=== PATIENT | female | born 1975 | race Caucasian/White ===

== ENCOUNTER → 2019-02-12 | Outpatient (CLI) | payer SELFPAY ==
--- NOTE | 2019-02-12 12:10 | CT ---
EXAMINATION TYPE: CT heart w calcium score DATE OF EXAM: 02/12/2019 COMPARISON: None HISTORY: Screening for cardiovascular disorder. 213.9 CT DLP: 51.9 mGycm Automated exposure control for dose reduction was used. CT CALCIUM SCORING Coronary calcium is a marker for plaque (fatty deposits) in a blood vessel or atherosclerosis (harden ing of the arteries). The presence and amount of calcium detected in a coronary artery by the CT sca n, indicates the presence and amount of atherosclerotic plaque. These calcium deposits appear years before the development of heart disease symptoms such as chest pain and shortness of breath. A calcium score is computed for each of the coronary arteries based upon the volume and density of th e calcium deposits. This can be referred to as your calcified plaque burden. It does not correspond directly to the percentage of narrowing in the artery but does correlate with the severity of the un derlying coronary atherosclerosis. PROCEDURE TECHNIQUE - Prospective Gating was used. Slice thickness: 3mm. Density threshold (HU): 130, Pixel threshold: 3, Algorithm: discrete. RESULTS Region: LM Calcium Score (Agat[place]): 0 Volume (mm3): Mass (g): Region: RCA Calcium Score ([place]at[place]): 0 Volume (mm3): Mass (g): Region: LAD Calcium Score ([place]at[place]): 0 Volume (mm3): Mass (g): Region: CX Calcium Score ([place]at[place]): 0 Volume (mm3): Mass (g): Region: PDA Calcium Score ([place]at[place]): 0 Volume (mm3): Mass (g): Total: Calcium Score (Agatston): 0 Volume (mm3): Mass (g): TOTAL CALCIUM SCORE: 0 IMPRESSION: Calcium Score: 0 Implication: No identifiable calcified plaque Risk of Coronary Artery Disease: Very low CALCIUM SCORE IMPLICATION RISK OF C ORONARY ARTERY DISEASE 0 No identifiable plaque Very low, generally less than 5% 1-10 Minimal identifiable plaque Very unlikely, less than 10% 11-100 Definite, at least mild atherosclerotic plaque Mild or m inimal coronary narrowings likely 101-400 Definite, at least moderate atherosclerotic plaque Mild coronary ar giulia disease highly likely, significant narrowing possible 401 or Higher Extensive atherosclerotic plaque High lik elihood of at least one significant coronary narrowing
== END | disposition home or self-care (01) ==
LOC: RADCTMAIN 08:51
PROVIDERS: ATTEND Family Medicine
DX: Z13.9 Encounter for screening, unspecified (principal)
CPT/HCPCS: 75571

== ENCOUNTER 2019-10-17 13:19 | Observation (INO) | payer BC ==
[2019-10-17] MEDS ORDERED: ASPIRIN 81 MG PO STA (13:47)
[2019-10-17] MEDS ORDERED: NITROGLYCERIN SL TABS 0.4 MG TAB SUBLINGUAL STA (13:47)
--- NOTE | 2019-10-17 13:52 | ED ---
Chest Pain HPI - General Chief Complaint: Chest Pain Stated Complaint: High BP/Chest Pain Time Seen by Provider: 10/17/19 13:39 Source: patient, RN notes reviewed Mode of arrival: ambulatory Limitations: no limitations - History of Present Illness Initial Comments: 44-year-old female presents emergency Department chief complaint of chest pain. Patient states that she developed this chest pain or today. Patient does admit that she's been having difficulty with her blood pressure in which she states her blood pressure has been elevated recently started on hydrochlorothiazide. Patient states that she has pain on side of chest that wraps around into her back between her shoulder blades. Patient states she has no significant cardiac history she did have a baseline CT of her heart last year which showed no acute findings. Patient does have strong family history of cardiac disease could hypertension. Patient denies history of hyperlipidemia, diabetes, smoking history. Patient has no complaints of abdominal pain no nausea vomiting. - Related Data Previous Rx's Medication Instructions Recorded Ketorolac [Toradol] 10 mg PO Q6HR #20 tab 06/26/14 Ondansetron HCl [Zofran] 4 mg PO Q8HR #15 tab 06/26/14 Allergies Allergy/AdvReac Type Severity Reaction Status Date / Time prochlorperazine edisylate Allergy Unknown Verified 10/17/19 13:23 [From Compazine] prochlorperazine maleate Allergy Unknown Verified 10/17/19 13:23 [From Compazine] Review of Systems ROS Statement: Those systems with pertinent positive or pertinent negative responses have been documented in the HPI. ROS Other: All systems not noted in ROS Statement are negative. EKG Findings - EKG Comments: EKG Findings:: EKG performed at 13:32 normal sinus rhythm rate of 97 MI 132 QRS 96 QT/QTC 342/[address] elevation or depression normal axis. Inverted T-wave noted in V2 Past Medical History Past Medical History: Hypertension History of Any Multi-Drug Resistant Organisms: None Reported Past Surgical History: Section Past Psychological History: No Psychological Hx Reported Smoking Status: Never smoker Past Alcohol Use History: Occasional Past Drug Use History: None Reported General Exam Limitations: no limitations General appearance: alert, in no apparent distress Head exam: Present: atraumatic, normocephalic, normal inspection Eye exam: Present: normal appearance, PERRL, EOMI. Absent: scleral icterus, conjunctival injection, periorbital swelling ENT exam: Present: normal exam, normal oropharynx, mucous membranes moist Neck exam: Present: normal inspection, full ROM. Absent: tenderness, meningismus, lymphadenopathy Respiratory exam: Present: normal lung sounds bilaterally. Absent: respiratory distress, wheezes, rales, rhonchi, stridor Cardiovascular Exam: Present: regular rate, normal rhythm, normal heart sounds. Absent: systolic murmur, diastolic murmur, rubs, gallop, clicks GI/Abdominal exam: Present: soft, normal bowel sounds. Absent: distended, tenderness, guarding, rebound, rigid Back exam: Absent: CVA tenderness (R), CVA tenderness (L) Neurological exam: Present: alert Skin exam: Present: warm, dry, intact, normal color. Absent: rash Course Vital Signs 10/17/19 10/17/19 10/17/19 13:19 13:57 14:26 Temperature 98.0 F Pulse Rate 107 H 92 92 Respiratory 18 18 16 Rate Blood Pressure 181/112 169/100 150/74 O2 Sat by Pulse 100 Oximetry Chest Pain [facility] Patient is admitted to patient Mr. hospitalist group for unstable anginal cardiology evaluation. Patient CT does show evidence of kidney stone she has had some flank pain. This may be further assessed. Critical Care Time Critical Care Time: Yes Total Critical Care Time: 35 Critical Care Time: Total 35 minutes of critical care time were used initially evaluated patient currently past medical history in order labs and studies. Patient found to have unstable angina patients and improved after nitro. Patient was GIVEN aspirin. Patiently admitted for cardiology evaluation, started on heparin infusion. Patient will have repeat troponin, echocardiogram. Disposition Clinical Impression: Unstable angina, Right ureteral calculus Disposition: ADMITTED IP TO THIS HOSP Condition: Fair Referrals: Douglas Mena DO [Primary Care Provider] - 1-2 days
[2019-10-17 14:15] LABS: Basophils % (A) 0 %; Eosinophils # (A) 0.1 k/uL (0-0.7); Eosinophils % (A) 1 %; HCT 40.7 % (34.0-46.0); HGB 13.4 gm/dL (11.4-16.0); Lymphocytes % (A) 25 %; MCH 29.5 pg (25.0-35.0); MCV 89.6 fL (80.0-100.0); Mean Platelet Volume 7.5; Monocytes # (A) 0.4 k/uL (0-1.0); Monocytes % (A) 5 %; Neutrophils # (A) 5.2 k/uL (1.3-7.7); Neutrophils % (A) 65 %; Platelet Count 316 k/uL (150-450); RBC 4.55 m/uL (3.80-5.40); RDW 13.3 % (11.5-15.5)
[2019-10-17 14:17] LABS: Albumin 4.2 g/dL (3.5-5.0); Calcium 9.8 mg/dL (8.4-10.2); Potassium 3.6 mmol/L (3.5-5.1); Total Bilirubin 0.4 mg/dL (0.2-1.3); Total Protein 7.4 g/dL (6.3-8.2)
[2019-10-17 14:18] LABS: INR 0.9 (<1.2); Partial Thromboplastin Time 23.2 sec (22.0-30.0); Prothrombin Time 9.4 sec (9.0-12.0)
[2019-10-17] MEDS ORDERED: SODIUM CHLORIDE 0.9% 1,000 ML IV ONE (14:19)
--- NOTE | 2019-10-17 15:15 | CT ---
EXAMINATION TYPE: CT angio thor/abd pel aorta DATE OF EXAM: 10/17/2019 COMPARISON: Calcium score 02/12/2019 HISTORY: 44-year-old female Chest pain TECHNIQUE: Contiguous axial scanning of the chest, abdomen, and pelvis performed without and with IV Contrast, patient injected with 100 mL of Isovue 370. Coronal/sagittal reconstructions performed. 3-D reconstructions generated on a dedicated independent workstation. CT DLP: 1084.4 mGycm Automated exposure control for dose reduction was used. FINDINGS: Chest: Heart normal size without pericardial effusion. Aorta normal caliber with aberrant right subclavian artery that takes a retroesophageal course. No ev idence for aortic dissection or aneurysm. Noncontrast series shows no acute intraparenchymal hematoma . Heterogeneous 1.9 cm nodule posterior right thyroid lobe has some punctate calcifications within. Thy roid ultrasound evaluation recommended. Bilateral retropectoral breast implants are demonstrated. No thoracic lymphadenopathy by CT size criteria. Mild biapical pleural-parenchymal scarring. No consolidation or pleural effusion. ABDOMEN: Arterial phase imaging of the liver shows a 9 mm cyst. Limited assessment of the portal venous system due to mixing contrast and blood. No biliary ductal dilatation. Gallbladder within normal limits. Adrenal glands, left kidney, early arterial phase enhancing mottled spleen, and pancreas show no rebecca s abnormality. There is mild to moderate right-sided hydronephrosis with a 7 mm calculus distal third right ureter a t the level of the iliac vessel crossing. No dilated small bowel, free fluid, or free air. No mesenteric or retroperitoneal lymphadenopathy. Scattered mild to moderate stool. No pericolic inflammatory change. PELVIS: Bladder urine distended. Uterus anteverted with arcuate configuration. A crenulated peripherally enha ncing structure measuring 2.0 cm within the right ovary suggests a corpus luteum or recently ruptured follicle. Left ovary not clearly delineated from adjacent bowel loops. No abnormal fluid collection in the pelvis or pelvic lymphadenopathy seen. BONES: No osseous destructive process. IMPRESSION: 1. NO EVIDENCE FOR AORTIC ANEURYSM OR ACUTE AORTIC INJURY. 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 2. A 7 MM CALCULUS AT THE DISTAL THIRD RIGHT URETER AT THE LEVEL OF THE ILIAC VESSEL CROSSING WITH ME [id number] OBSTRUCTIVE UROPATHY. 3. FURTHER ULTRASOUND EVALUATION RECOMMENDED OF A 1.9 CM HETEROGENEOUS POSTERIOR RIGHT THYROID LOBE N ODULE. FNA MAY BE INDICATED TO EXCLUDE NEOPLASM.
[2019-10-17] MEDS ORDERED: HEPARIN SODIUM,PORCINE 5,000 UNIT/ML 1 ML VIAL IV ONE (15:31)
[2019-10-17] MEDS ORDERED: HEPARIN SODIUM,PORCINE 5,000 UNIT/ML 1 ML VIAL IV PRN (15:31)
[2019-10-17] MEDS ORDERED: NITROGLYCERIN SL TABS 0.4 MG TAB SUBLINGUAL PRN (15:31)
[2019-10-17] MEDS ORDERED: HEPARIN SOD,PORK IN 0.45% NACL 25,000 UNIT in 0.45% NACL 1 250ML.BAG IV SCH (15:45)
[2019-10-17] MEDS ORDERED: TEMAZEPAM 15 MG CAP PO PRN (16:57)
[2019-10-17] MEDS ORDERED: ALPRAZolam 0.25 MG TAB PO PRN (16:57)
[2019-10-17] MEDS ORDERED: ACETAMINOPHEN TAB 500 MG TAB PO PRN (16:57)
--- NOTE | 2019-10-17 17:24 | XR ---
EXAMINATION: XR chest 1V portable DATE AND TIME: 10/17/2019 5:16 PM CLINICAL INDICATION: PHH; chest pain TECHNIQUE: AP upright portable COMPARISON: None FINDINGS: The lungs are clear. The pleural spaces are negative. The cardiac silhouette is not enlarged. The remainder of the mediastinal silhouette is unremarkable. The skeletal structures and soft tissues are negative for acute findings. IMPRESSION: No acute process
[2019-10-17 17:47] LABS: Appearance,Urine Clear (Clear); Bacteria,Urine Rare /hpf; Bilirubin,Urine Negative (Negative); Blood,Urine Trace (Negative); Color,Urine Light Yellow; Glucose,Urine (UA) Negative (Negative); Ketones,Urine Negative (Negative); Leukocyte Esterase,Urine Trace (Negative); Mucus,Urine Rare /hpf; Nitrite,Urine Negative (Negative); Protein,Urine Negative (Negative); RBC,Urine 6 /hpf (0-5); Squamous Epithelial Cell,Urine 2 /hpf (0-4); Urobilinogen,Urine <2.0 mg/dL (<2.0); WBC,Urine 3 /hpf (0-5)
[2019-10-17 17:53] LABS: Amphetamine Screen,Urine Not Detected (NotDetected); Barbiturate Screen,Urine Not Detected (NotDetected); Benzodiazepines Screen,Urine Not Detected (NotDetected); Cocaine Screen,Urine Not Detected (NotDetected); Methadone Screen, Urine Not Detected (NotDetected); Opiate Screen,Urine Not Detected (NotDetected); Oxycodone Screen, Urine Not Detected (NotDetected); Phencyclidine Screen,Urine Not Detected (NotDetected); Tricyclic Antidepressant,Urine Not Detected (NotDetected); Urn Cannabinoid Scrn Not Detected (NotDetected)
--- NOTE | 2019-10-17 17:58 | ECHOF ---
Referral Reason:chest pain MEASUREMENTS -------- HEIGHT: 165.1 cm WEIGHT: 63.5 kg BP: 150/74 RVIDd: 2.2 cm (< 3.3) IVSd: 1.2 cm (0.6 - 1.1) LVIDd: 3.2 cm (3.9 - 5.3) LVPWd: 1.1 cm (0.6 - 1.1) IVSs: 1.4 cm LVIDs: 2.4 cm LVPWs: 1.4 cm LA Diam: 2.7 cm (2.7 - 3.8) LAESV Index (A-L): 19.67 ml/m Ao Diam: 3.1 cm (2.0 - 3.7) AV Cusp: 1.8 cm (1.5 - 2.6) MV EXCURSION: 16.139 mm (> 18.000) MV EF SLOPE: 70 mm/s (70 - 150) EPSS: 0.3 cm MV E Edmond: 0.80 m/s MV DecT: 278 ms MV A Edmond: 0.77 m/s MV E/A Ratio: 1.04 RAP: 5.00 mmHg RVSP: 17.13 mmHg TAPSE: 21.48 mm FINDINGS -------- Sinus rhythm. This was a technically good study. The left ventricular size is normal. There is borderline concentric left ventricular hypertrophy. Overall left ventricular systolic function is normal with, an EF between 60 - 65 %. The right ventricle is normal in size. Normal LA size by volume 22+/-6 ml/m2. The right atrium is normal in size. Interatrial and interventricular septum intact. The aortic valve is trileaflet and appears structurally normal. The mitral valve is normal. Mild tricuspid regurgitation present. Right ventricular systolic pressure is normal at < 35 mmHg. There is no pulmonic regurgitation present. The aortic root size is normal. Normal inferior vena cava with normal inspiratory collapse consistent with estimated right atrial pre ssure of 5 mmHg. There is no pericardial effusion. CONCLUSIONS -------- 1. Sinus rhythm. 2. This was a technically good study. 3. The left ventricular size is normal. 4. There is borderline concentric left ventricular hypertrophy. 5. Overall left ventricular systolic function is normal with, an EF between 60 - 65 %. 6. The right ventricle is normal in size. 7. Normal LA size by volume 22+/-6 ml/m2. 8. The right atrium is normal in size. 9. Interatrial and interventricular septum intact. 10. The aortic valve is trileaflet and appears structurally normal. 11. The mitral valve is normal. 12. Mild tricuspid regurgitation present. 13. Right ventricular systolic pressure is normal at < 35 mmHg. 14. There is no pulmonic regurgitation present. 15. The aortic root size is normal. 16. Normal inferior vena cava with normal inspiratory collapse consistent with estimated right atrial pressure of 5 mmHg. 17. There is no pericardial effusion. PAN RECLAIM PROCESSOR: Angela Chavez RDCS
[2019-10-17 18:11] VITALS: RESP 18
[2019-10-17] MEDS: SODIUM CHLORIDE 0.9% 1,000 ML IV SCH (18:36)
[2019-10-17] MEDS: PANTOPRAZOLE 40 MG/10 ML VIAL IVP SCH (18:36)
[2019-10-17] MEDS ORDERED: METOPROLOL TARTRATE 12.5 MG TAB PO SCH (21:00)
--- NOTE | 2019-10-17 22:04 | HP ---
HISTORY AND PHYSICAL DATE OF SERVICE: 10/17/2019 CHIEF COMPLAINT: Chest pain. HISTORY OF PRESENT ILLNESS: This is a 44-year-old woman with a past history of hypertension and history of section being followed by Dr. Mena in the outpatient setting who was complaining of chest pain, which is felt in the left side of the chest, which is rather pressure type and which is radiating to the front of the chest and also the upper back and also to the left side of the neck and patient . The patient has some fluctuation in the blood pressure as well. The patient was started on hydrochlorothiazide. The pain is wrapping around the chest and there was no radiation of the pain elsewhere or any other associated symptoms, palpitations or sweating. The patient . Initial EKG shows no ST-T changes. Troponins are negative. The patient had mild renal failure. The patient was admitted for further evaluation and treatment. There is no history of any fever, rigors, or chills. No history headache, loss of consciousness, or seizures. The patient reports the patient is going through a divorce which is causing some stress. There is no history of any trauma at this time. No history of trauma or any hematochezia, anemia, weight loss or weight gain at this time. PAST MEDICAL HISTORY: History of hypertension, history of section. HOME MEDICATIONS: 1. Zofran 4 mg q.8 p.r.n. 2. Toradol 10 mg q.6 p.r.n. 3. Hydrochlorothiazide. ALLERGIES: PROCHLORPERAZINE and COMPAZINE. FAMILY HISTORY: History of hypertension in the family. SOCIAL HISTORY: Occasional alcohol intake. No history of smoking. REVIEW OF SYSTEMS: ENT: No diminished vision. No diminished hearing. CARDIOVASCULAR: No angina or palpitations. RESPIRATORY: As mentioned earlier. GI: No nausea and vomiting. : No dysuria. NERVOUS SYSTEM: No numbness or weakness. ALLERGY/IMMUNOLOGY: No asthma or hayfever. MUSCULOSKELETAL: As mentioned earlier. HEMATOLOGY/ONCOLOGY: No history of anemia. ENDOCRINE: No history of diabetes or hypothyroidism. CONSTITUTIONAL: As mentioned earlier. DERMATOLOGY: Negative. RHEUMATOLOGY: Negative. PSYCHIATRY: As mentioned earlier. PHYSICAL EXAMINATION: The patient is alert and oriented x3. Pulse is 107, blood pressure 184/112, respirations 18, temperature is 98 degrees, pulse ox 100% on room air. HEENT: Conjunctivae normal. Oral mucosa moist. NECK: No jugular venous distention. No carotid bruit. No lymph node enlargement. CARDIOVASCULAR SYSTEM: S1, S2 muffled. No S3. No S4. RESPIRATORY SYSTEM: Breath sounds diminished at the bases. No rhonchi. No crackles. ABDOMEN: Soft, non-tender. No mass palpable. LEGS: No edema. NERVOUS SYSTEM: Higher functions as mentioned earlier. Moves all 4 limbs. No focal motor or sensory deficit. LYMPHATICS: No lymph node palpable in neck, axillae or groin. SKIN: No ulcer, rash, bleeding. JOINTS: No active deforming arthropathy. LABS: CBC within normal limits. INR 0.9. Sodium 130, potassium 3.6, creatinine is 1.13, BUN is 18. ASSESSMENT: 1. Chest pain, possible unstable angina. 2. Increased creatinine with mild acute renal failure, possibly prerenal acute tubular necrosis. 3. Hyponatremia. 4. Hypertension. 5. History of section. RECOMMENDATIONS AND DISCUSSION: This 44-year-old woman presented with multiple medical issues. At this time, I recommend to continue the current medications, management, and symptomatic treatment. IV heparin. I would also recommend IV fluids. UA with micro. Recommend a small dose of beta freeman. Cardiology consultation. Prognosis guarded because of multiple complex medical issues. A copy of this letter will be forwarded to Dr. Mena who is the primary physician. VAMSHI / SIRI: [id number] / [id number]
[2019-10-18] MEDS: SODIUM CHLORIDE 0.9% 1,000 ML IV SCH (04:15)
[2019-10-18 06:31] LABS: Basophils % (A) 0 %; Eosinophils # (A) 0.2 k/uL (0-0.7); Eosinophils % (A) 3 %; HCT 37.8 % (34.0-46.0); HGB 12.3 gm/dL (11.4-16.0); Lymphocytes # (A) 1.7 k/uL (1.0-4.8); Lymphocytes % (A) 26 %; MCH 29.7 pg (25.0-35.0); MCHC 32.5 g/dL (31.0-37.0); MCV 91.6 fL (80.0-100.0); Mean Platelet Volume 7.4; Monocytes # (A) 0.4 k/uL (0-1.0); Monocytes % (A) 6 %; Neutrophils % (A) 61 %; Platelet Count 266 k/uL (150-450); RBC 4.13 m/uL (3.80-5.40); RDW 13.3 % (11.5-15.5); WBC 6.5 k/uL (3.8-10.6)
[2019-10-18 06:51] LABS: Calcium 8.5 mg/dL (8.4-10.2); Potassium 3.8 mmol/L (3.5-5.1)
[2019-10-18 07:24] VITALS: BP 147/83; PULSE 77; TEMP 98.2
[2019-10-18] MEDS ORDERED: ASPIRIN 325 MG TAB PO SCH (09:00)
[2019-10-18] MEDS ORDERED: HYDROCHLOROTHIAZIDE 12.5 MG CAP PO SCH (09:00)
--- NOTE | 2019-10-18 09:55 | P.CRDCN ---
History of Present Illness History of present illness: HISTORY OF PRESENTING ILLNESS This is a pleasant 44-year-old female past medical history significant for hypertension. 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 We have been asked to see in consultation for chest pain. She states yesterday while sitting down conversing with her son she started feeling a tightness in the chest in the midsternal region that radiated across to both of her shoulders and through to her back. Initially the symptoms remained stable at that point but then they started radiating up into her throat and jaw. The symptoms lasted for about 15 minutes with no specific aggravating or alleviating factor. They slowly started to subside on their own once arriving at the hospital. She had no associated shortness of breath, dizziness, nausea, vomiting, diaphoresis or palpitations. She did undergo a cardiac CT last year which revealed a calcium score of 0 with no significant coronary plaques noted. She was recently diagnosed with hypertension and started on hydrochlorothiazide 12.5 mg daily per PCP on Monday of this week. Echocardiogram obtained reveals preserved LV systolic function with ejection fraction 60-65%. DIAGNOSTICS EKG reveals sinus mechanism with no acute ST or T wave abnormalities noted. Chest xray negative for an acute cardiopulmonary process. CT of the thoracic aorta reveals aorta normal caliber with no evidence of dissection or aneurysm. Incidental finding of a 1.9 cm nodule on the right lobe of thyroid as well as a 7 mm calculus at the distal third. There Laboratory reviewed, CBC unremarkable, cardiac enzymes negative 3, NT proBNP 41, TSH 1.6, LDL 73, creatinine 0.9. Current cardiac medications include hydrochlorothiazide 12.5 mg daily. REVIEW OF SYSTEMS At the time of my exam: CONSTITUTIONAL: Denies fever or chills. CARDIOVASCULAR: Denies chest pain, shortness of breath, orthopnea, PND or palpitations. RESPIRATORY: Denies cough. GASTROINTESTINAL: Denies abdominal pain, diarrhea, constipation, nausea or vomiting. MUSCULOSKELETAL: Denies myalgias. NEUROLOGIC: Denies numbness, tingling or weakness. ENDOCRINE: Denies fatigue, weight change, polydipsia or polyurina. GENITOURINARY: Denies burning, hematuria or urgency with micturation. HEMATOLOGIC: Denies history of anemia or bleeding. PHYSICAL EXAMINATION Blood pressure 147/83 heart rate 77 afebrile and maintaining oxygen saturation on room air. CONSTITUTIONAL: No apparent distress. HEENT: Head is normocephalic. Pupils are equal, round. Sclerae anicteric. Mucous membranes of the mouth are moist. No JVD. No carotid bruit. CHEST EXAMINATION: Lungs are clear to auscultation. No chest wall tenderness is noted on palpation or with deep breathing. HEART EXAMINATION: Regular rate and rhythm. S1, S2 heard. No murmurs, gallops or rub. ABDOMEN: Soft, nontender. Positive bowel sounds. EXTREMITIES: 2+ peripheral pulses, no lower extremity edema and no calf tenderness. NEUROLOGIC EXAMINATION: Patient is awake, alert and oriented x3. ASSESSMENT Chest pain, atypical. An acute coronary event has been ruled out. Hypertension PLAN An acute coronary event has been ruled out. Discontinue heparin infusion. Perform stress echocardiogram to assess her stress induced cardiac ischemia. Continue hydrochlorothiazide 12.5 mg daily. Advised her to keep a log of her daily blood pressures to bring to follow up appointment for further adjustment of antihypertensive therapy. Thank you kindly for this consultation. Nurse Practitioner note has been reviewed, I agree with a documented findings and plan of care. Patient was seen and examined. Past Medical History Past Medical History: Hypertension, Musculoskeletal Disorder, Renal Disease, Respiratory Disorder, Thyroid Disorder Additional Past Medical History / Comment(s): Sciatic nerve pinched, kidney stones, broncitis, post hyperthyroidism, vertigo History of Any Multi-Drug Resistant Organisms: None Reported Past Surgical History: Section, Tonsillectomy Additional Past Surgical History / Comment(s): breast implants Past Anesthesia/Blood Transfusion Reactions: No Reported Reaction, Motion Sickness Past Psychological History: No Psychological Hx Reported Smoking Status: Never smoker Past Alcohol Use History: Occasional Past Drug Use History: None Reported - Past Family History Father Family Medical History: Hypertension Additional Family Medical History / Comment(s): crohns Mother Family Medical History: Hypertension Sister(s) Family Medical History: Hypertension Additional Family Medical History / Comment(s): crohns Medications and Allergies Home Medications Medication Instructions Recorded Confirmed Type Hydrochlorothiazide [Hydrodiuril] 12.5 mg PO DAILY 10/17/19 10/17/19 History Allergies Allergy/AdvReac Type Severity Reaction Status Date / Time prochlorperazine edisylate Allergy Unknown Verified 10/17/19 13:23 [From Compazine] prochlorperazine maleate Allergy Unknown Verified 10/17/19 13:23 [From Compazine] Physical Exam Vitals: Vital Signs Temp Pulse Pulse Resp BP BP Pulse Ox 10/18/19 08:00 77 18 10/18/19 07:23 98.2 F 77 18 147/83 100 10/18/19 04:33 98.4 F 78 18 137/84 100 10/18/19 00:00 98.1 F 85 18 156/94 100 10/17/19 19:33 98.6 F 79 18 167/94 100 10/17/19 18:10 96 18 184/99 99 10/17/19 14:26 92 16 150/74 10/17/19 13:57 92 18 169/100 10/17/19 13:19 98.0 F 107 H 18 181/112 100 Intake and Output 10/17/19 10/18/19 10/18/19 22:59 06:59 14:59 Intake Total 427.197 Balance 427.197 Intake: Intake, IV Titration 427.197 Amount Heparin Sod,Pork in 0.45% 52.197 NaCl 25,000 unit In 0.45 % NaCl 1 250ml.bag @ 12 UNITS/KG/HR 7.62 mls/hr IV .Q24H [facility] Rx#: [id number] Sodium Chloride 0.9% 1, 375 000 ml @ 75 mls/hr IV . [id number] [facility] Rx#:[id number] Other: Voiding Method Toilet # Voids 1 Weight 63.503 kg Results 10/18/19 05:51 10/18/19 05:51 Cardiac Enzymes 10/17/19 10/17/19 10/17/19 Range/Units 13:50 13:50 19:34 AST 16 (14-36) U/L Troponin I <0.012 <0.012 (0.000-0.034) ng/mL 10/18/19 Range/Units 01:50 AST (14-36) U/L Troponin I <0.012 (0.000-0.034) ng/mL Coagulation 10/17/19 10/17/19 10/18/19 Range/Units 13:50 22:30 05:51 PT 9.4 (9.0-12.0) sec APTT 23.2 43.7 H 51.3 H (22.0-30.0) sec Lipids 10/18/19 Range/Units 05:51 Triglycerides 111 (<150) mg/dL Cholesterol 147 (<200) mg/dL HDL Cholesterol 52 (40-60) mg/dL CBC 10/17/19 10/18/19 Range/Units 13:50 05:51 WBC 8.0 6.5 (3.8-10.6) k/uL RBC 4.55 4.13 (3.80-5.40) m/uL Hgb 13.4 12.3 (11.4-16.0) gm/dL Hct 40.7 37.8 (34.0-46.0) % Plt Count 316 266 (150-450) k/uL Comprehensive Metabolic Panel 10/17/19 10/18/19 Range/Units 13:50 05:51 Sodium 135 L 136 L (137-145) mmol/L Potassium 3.6 3.8 (3.5-5.1) mmol/L Chloride 97 L 104 (98-107) mmol/L Carbon Dioxide 31 H 26 (22-30) mmol/L BUN 18 H 16 (7-17) mg/dL Creatinine 1.13 H 0.90 (0.52-1.04) mg/dL Glucose 81 90 (74-99) mg/dL Calcium 9.8 8.5 (8.4-10.2) mg/dL AST 16 (14-36) U/L ALT 10 (4-34) U/L Alkaline Phosphatase 63 (38-126) U/L Total Protein 7.4 (6.3-8.2) g/dL Albumin 4.2 (3.5-5.0) g/dL Current Medications Generic Name Dose Route Start Last Admin Trade Name Freq PRN Reason Stop Dose Admin Acetaminophen 500 mg 10/17/19 16:57 Tylenol Tab PO Q6HR PRN Fever and/ or Pain Alprazolam 0.25 mg 10/17/19 16:57 Xanax PO TID PRN Anxiety Aspirin 325 mg 10/18/19 09:00 Aspirin PO DAILY CHUCK Heparin Sodium (Porcine) 0 unit 10/17/19 15:31 Heparin IV Q6HR PRN Low PTT Protocol Hydrochlorothiazide 12.5 mg 10/18/19 09:00 10/18/19 09:21 Hydrodiuril PO 12.5 mg DAILY [facility]UCK Administration Sodium Chloride 1,000 mls @ 75 mls/hr 10/17/19 17:00 10/18/19 04:15 Saline 0.9% IV 75 mls/hr .[id number] CHUCK Administration Nitroglycerin 0.4 mg 10/17/19 15:31 Nitrostat SUBLINGUAL Q5M PRN Chest Pain Pantoprazole Sodium 40 mg 10/17/19 17:00 10/17/19 18:36 Protonix IVP 40 mg BID CHUCK Administration Temazepam 15 mg 10/17/19 16:57 Restoril PO HS PRN Insomnia Intake and Output 10/17/19 10/18/19 10/18/19 22:59 06:59 14:59 Intake Total 427.197 Balance 427.197 Intake: Intake, IV Titration 427.197 Amount Heparin Sod,Pork in 0.45% 52.197 NaCl 25,000 unit In 0.45 % NaCl 1 250ml.bag @ 12 UNITS/KG/HR 7.62 mls/hr IV .Q24H [facility] Rx#: [id number] Sodium Chloride 0.9% 1, 375 000 ml @ 75 mls/hr IV . [id number] [facility] Rx#:[id number] Other: Voiding Method Toilet # Voids 1 Weight 63.503 kg 10/18/19 05:51 10/18/19 05:51
[2019-10-18] MEDS: PANTOPRAZOLE 40 MG/10 ML VIAL IVP SCH (10:21)
--- NOTE | 2019-10-18 10:41 | ECHOS ---
STRESS ECHOCARDIOGRAM INDICATIONS: Chest pain. BASELINE HEART RATE: 81 BASELINE BLOOD PRESSURE: 154/84 MAXIMUM HEART RATE: 162 MAXIMUM BLOOD PRESSURE: 192/87 85% MPHR: 148 100% MPHR: 174 METS: 10.5 MAXIMUM STAGE REACHED: 3 TOTAL EXERCISE TIME: 9:00 CLINICAL INFORMATION: Baseline EKG shows sinus rhythm, normal axis, normal intervals. Patient exercised on Teddy protocol for a total of 9 minutes achieving 10 METS, 93% of predicted maximal heart rate without chest pain or diagnostic ST-segment depression. Baseline echo shows normal left ventricular size, wall motion systolic function. Postexercise there is normal hyperdynamic response of all segments of myocardium noted. CONCLUSION: 1. Good exercise tolerance. 2. Negative stress test by EKG criteria. 3. Negative stress echo. MMHUGOL / IJN: [id number] /
[2019-10-18] MEDS ORDERED: PANTOPRAZOLE 40 MG TABLET PO SCH (21:00)
--- NOTE | 2019-10-18 22:17 | DS ---
DISCHARGE SUMMARY DATE OF SERVICE: 10/18/2019 FINAL DIAGNOSES: 1. Chest pain, myocardial infarction ruled out. Negative stress echo, possibly musculoskeletal. 2. Increased creatinine with mild acute renal failure with possible prerenal acute tubular necrosis improved. 3. Hyponatremia. 4. Hypertension. 5. History of section. DISCHARGE DISPOSITION: The patient is being discharged in stable condition with guarded prognosis. HISTORY OF PRESENT ILLNESS: This 44-year-old woman with a past medical history of multiple medical problems was admitted with chest pain. Myocardial infarction ruled out. Cardiology performed stress echo which was normal. The patient also had some minimal renal failure which is improved with IV hydration. On exam, vitals are stable. Cardiovascular: S1, S2 muffled. Abdomen soft. Nervous system: No focal deficits. DISCHARGE ADVICE AND MEDICATIONS: 1. Diet cardiac. 2. Activity limited until followup. 3. Follow up with Dr. Mena in 2-3 days. 4. Follow up with Cardiology as recommended. DISCHARGE MEDICATIONS: Hydrochlorothiazide 12.5 mg daily. Followup blood pressure twice daily and as well as Dr. Mena. Once again the patient will be discharged in stable condition with guarded prognosis. MMODL / IJN: [id number] /
== END 2019-10-18 13:04 ==
LOC: EC 13:19 → 1SOBS 16:18
PROVIDERS: ADMIT Hospitalist; ATTEND Hospitalist
DX: R07.89 Other chest pain (principal); N17.9 Acute kidney failure, unspecified; I10 Essential (primary) hypertension; E87.1 Hypo-osmolality and hyponatremia; N20.1 Calculus of ureter; E04.1 Nontoxic single thyroid nodule; I07.1 Rheumatic tricuspid insufficiency; Z63.5 Disruption of family by separation and divorce; Z88.8 Allergy status to other drugs, medicaments and biological substances; Z79.899 Other long term (current) drug therapy; Z82.49 Family history of ischemic heart disease and other diseases of the circulatory system; Z83.79 Family history of other diseases of the digestive system; Z90.89 Acquired absence of other organs; Z98.82 Breast implant status
CPT/HCPCS: 93005 ×2; 96366 ×2; 96375; 96376 ×2; 96361; 96365; 99291; 36415; 93306; 93351; 83880; 80061; 80053; 80048; 84443; 83690; 83735; 84484 ×2; 85025 ×2; 85610; 85730 ×2; 81001; 80306; 71045; 71275; 74174; G0378 ×2; J1644 ×2; C9113 ×2; Q9967

== ENCOUNTER → 2019-10-28 | Outpatient (CLI) | payer BC | END | disposition home or self-care (01) | DX: E04.1 Nontoxic single thyroid nodule (principal) | CPT/HCPCS: 76536 ==

== ENCOUNTER 2019-11-23 08:45 | Emergency (ER) | payer BC ==
[2019-11-23 08:50] VITALS: RESP 18; TEMP 97.9
[2019-11-23] MEDS ORDERED: SODIUM CHLORIDE 0.9% 2,000 ML IV STA (08:55)
[2019-11-23] MEDS ORDERED: MORPHINE SULFATE 4 MG/ML SYRINGE IV STA (08:55)
[2019-11-23] MEDS ORDERED: ONDANSETRON 4 MG/2 ML VIAL IVP STA ×2 (08:55→10:04)
[2019-11-23] MEDS ORDERED: KETOROLAC 30 MG/ML 1 ML VIAL IVP STA (08:55)
--- NOTE | 2019-11-23 08:57 | ED ---
Abdominal Pain HPI - General Chief Complaint: Abdominal Pain Stated Complaint: VOMITING Time Seen by Provider: 11/23/19 08:48 Source: patient Mode of arrival: wheelchair Limitations: no limitations - History of Present Illness Initial Comments: This is a 44 show female presents emergency Department chief complaint of nausea vomiting, right flank pain. Patient has a history kidney stone states that she associated a 4 mm stone in the past. Patient states pain is been going on for a few days uncontrolled with oral Toradol and Vicodin at home. Patient states she started vomiting this morning. No fevers or chills she does admit that she has some mild dysuria no noted hematuria. Patient denies fever, chills. She states pain is in her right flank and rates her right lower abdomen. Consistent with her prior kidney stones. Patient denies chest pain, shortness breath, headache or dizziness. Patient states she has an ALLERGY to Compazine no other known drug ALLERGIES. Patient states that makes the pain feel better or worse. - Related Data Home Medications Medication Instructions Recorded Confirmed Hydrochlorothiazide [Hydrodiuril] 12.5 mg PO DAILY 10/17/19 10/17/19 Previous Rx's Medication Instructions Recorded Ondansetron Odt [Zofran Odt] 4 mg PO Q8HR PRN #14 tab 11/23/19 Allergies Allergy/AdvReac Type Severity Reaction Status Date / Time prochlorperazine edisylate Allergy Unknown Verified 11/23/19 08:49 [From Compazine] prochlorperazine maleate Allergy Unknown Verified 11/23/19 08:49 [From Compazine] Review of Systems ROS Statement: Those systems with pertinent positive or pertinent negative responses have been documented in the HPI. ROS Other: All systems not noted in ROS Statement are negative. Past Medical History Past Medical History: Hypertension, Musculoskeletal Disorder, Renal Disease, Respiratory Disorder, Thyroid Disorder Additional Past Medical History / Comment(s): Sciatic nerve pinched, kidney stones, broncitis, post hyperthyroidism, vertigo History of Any Multi-Drug Resistant Organisms: None Reported Past Surgical History: Section, Tonsillectomy Additional Past Surgical History / Comment(s): breast implants Past Anesthesia/Blood Transfusion Reactions: No Reported Reaction, Motion Sickness Past Psychological History: No Psychological Hx Reported Smoking Status: Never smoker Past Alcohol Use History: Occasional Past Drug Use History: None Reported - Past Family History Father Family Medical History: Hypertension Additional Family Medical History / Comment(s): crohns Mother Family Medical History: Hypertension Sister(s) Family Medical History: Hypertension Additional Family Medical History / Comment(s): crohns General Exam Limitations: no limitations General appearance: alert, in no apparent distress Head exam: Present: atraumatic, normocephalic, normal inspection Eye exam: Present: normal appearance, PERRL, EOMI. Absent: scleral icterus, conjunctival injection, periorbital swelling Neck exam: Present: normal inspection, full ROM. Absent: tenderness, meningismus, lymphadenopathy Respiratory exam: Present: normal lung sounds bilaterally. Absent: respiratory distress, wheezes, rales, rhonchi, stridor Cardiovascular Exam: Present: regular rate, normal rhythm, normal heart sounds. Absent: systolic murmur, diastolic murmur, rubs, gallop, clicks GI/Abdominal exam: Present: soft, normal bowel sounds. Absent: distended, tenderness, guarding, rebound, rigid Back exam: Present: CVA tenderness (R). Absent: CVA tenderness (L) Neurological exam: Present: alert, oriented X3, CN II-XII intact Skin exam: Present: warm, dry, intact, normal color. Absent: rash Course Vital Signs 11/23/19 08:48 Temperature 97.9 F Pulse Rate 97 Respiratory 18 Rate Blood Pressure 115/76 O2 Sat by Pulse 99 Oximetry - Reevaluation(s) Reevaluation #1: 11/23/19 10:04 Patient reevaluated and updated and results resting comfortably in bed with no complaints of abdominal pain or flank pain Medical Decision Making - Medical Decision Making 44-year-old female presented for nausea vomiting right flank pain. Patient had a known history kidney stones. Patient's urinalysis reveals evidence of hematuria and there is some few WBCs of this is likely related to RBC Contin. Patient and was cultured. Patient is afebrile. Patient seems improved she'll continue Toradol, [place] at home in addition she'll continue Flomax and provided Zofran. She has a neurologist to follow-up with. We did discuss strict return parameters. Patient agrees with this plan at this time. - Lab Data Result diagrams: 11/23/19 09:07 11/23/19 09:07 Lab Results 04/07/0311/23/19 11/23/19 Range/Units 09:00 09:07 09:07 WBC 10.7 H (3.8-10.6) k/uL RBC 4.21 (3.80-5.40) m/uL Hgb 12.9 (11.4-16.0) gm/dL Hct 37.3 (34.0-46.0) % MCV 88.5 (80.0-100.0) fL MCH 30.7 (25.0-35.0) pg MCHC 34.7 (31.0-37.0) g/dL RDW 13.2 (11.5-15.5) % Plt Count 281 (150-450) k/uL Neutrophils % 78 % Lymphocytes % 13 % Monocytes % 5 % Eosinophils % 1 % Basophils % 0 % Neutrophils # 8.3 H (1.3-7.7) k/uL Lymphocytes # 1.4 (1.0-4.8) k/uL Monocytes # 0.5 (0-1.0) k/uL Eosinophils # 0.1 (0-0.7) k/uL Basophils # 0.0 (0-0.2) k/uL Sodium 136 L (137-145) mmol/L Potassium 3.4 L (3.5-5.1) mmol/L Chloride 101 (98-107) mmol/L Carbon Dioxide 27 (22-30) mmol/L Anion Gap 8 mmol/L BUN 16 (7-17) mg/dL Creatinine 1.12 H (0.52-1.04) mg/dL Est GFR (CKD-EPI)AfAm 68 (>60 ml/min/1.73 sqM) Est GFR (CKD-EPI)NonAf 59 (>60 ml/min/1.73 sqM) Glucose 105 H (74-99) mg/dL Calcium 9.6 (8.4-10.2) mg/dL Total Bilirubin 1.0 (0.2-1.3) mg/dL AST 23 (14-36) U/L ALT 11 (4-34) U/L Alkaline Phosphatase 65 (38-126) U/L Total Protein 7.4 (6.3-8.2) g/dL Albumin 4.3 (3.5-5.0) g/dL Amylase 79 (30-110) U/L Lipase 34 (23-300) U/L Urine Color Yellow Urine Appearance Cloudy H (Clear) Urine pH 5.5 (5.0-8.0) Ur Specific [place] 1.020 (1.001-1.035) Urine Protein 1+ H (Negative) Urine Glucose (UA) Negative (Negative) Urine Ketones Negative (Negative) Urine Blood Moderate H (Negative) Urine Nitrite Negative (Negative) Urine Bilirubin Negative (Negative) Urine Urobilinogen <2.0 (<2.0) mg/dL Ur Leukocyte Esterase Small H (Negative) Urine RBC >182 H (0-5) /hpf Urine WBC 35 H (0-5) /hpf Ur Squamous Epith Cells 2 (0-4) /hpf Hyaline Casts 9 H (0-2) /lpf Urine Mucus Many H (None) /hpf Disposition Clinical Impression: Kidney stone Disposition: HOME SELF-CARE Condition: Stable Instructions (If sedation given, give patient instructions): Kidney Stones (ED) Additional Instructions: Please return to the Emergency Department if symptoms worsen or any other concerns. Prescriptions: Ondansetron Odt [Zofran Odt] 4 mg PO Q8HR PRN #14 tab PRN Reason: Nausea Is patient prescribed a controlled substance at d/c from ED?: No Referrals: Douglas Mena DO [Primary Care Provider] - 1-2 days Time of Disposition: 10:06
[2019-11-23 09:32] LABS: Basophils % (A) 0 %; Eosinophils # (A) 0.1 k/uL (0-0.7); Eosinophils % (A) 1 %; HCT 37.3 % (34.0-46.0); HGB 12.9 gm/dL (11.4-16.0); Lymphocytes # (A) 1.4 k/uL (1.0-4.8); Lymphocytes % (A) 13 %; MCH 30.7 pg (25.0-35.0); MCHC 34.7 g/dL (31.0-37.0); MCV 88.5 fL (80.0-100.0); Mean Platelet Volume 8.1; Monocytes # (A) 0.5 k/uL (0-1.0); Monocytes % (A) 5 %; Neutrophils # (A) 8.3 k/uL (1.3-7.7); Neutrophils % (A) 78 %; Platelet Count 281 k/uL (150-450); RBC 4.21 m/uL (3.80-5.40); RDW 13.2 % (11.5-15.5); WBC 10.7 k/uL (3.8-10.6)
[2019-11-23 09:43] LABS: Appearance,Urine Cloudy (Clear); Bilirubin,Urine Negative (Negative); Blood,Urine Moderate (Negative); Color,Urine Yellow; Glucose,Urine (UA) Negative (Negative); Hyaline Casts,Urine 9 /lpf (0-2); Ketones,Urine Negative (Negative); Leukocyte Esterase,Urine Small (Negative); Mucus,Urine Many /hpf; Nitrite,Urine Negative (Negative); PH, Urine 5.5 (5.0-8.0); Protein,Urine 1+ (Negative); RBC,Urine >182 /hpf (0-5); Squamous Epithelial Cell,Urine 2 /hpf (0-4); Urobilinogen,Urine <2.0 mg/dL (<2.0); WBC,Urine 35 /hpf (0-5)
[2019-11-23 09:47] LABS: Albumin 4.3 g/dL (3.5-5.0); Calcium 9.6 mg/dL (8.4-10.2); Potassium 3.4 mmol/L (3.5-5.1); Total Protein 7.4 g/dL (6.3-8.2)
--- NOTE | 2019-11-23 09:50 | XR ---
EXAMINATION TYPE: XR KUB , 2 VIEWS DATE OF EXAM ORDERED: 11/23/2019 HISTORY: abdominal pain. COMPARISON: Previous study dated 06/26/2014. FINDINGS: The lung bases are clear. Within the abdomen, the abdominal gas pattern is normal. There is no evidence of obstruction or free air. No unusual calcifications are seen. IMPRESSION: NO ACUTE INTRA-ABDOMINAL ABNORMALITY.
[2019-11-23 10:30] VITALS: BP 117/77; PULSE 72
== END 2019-11-23 10:47 | disposition home or self-care (01) ==
LOC: EC 08:45
DX: N20.0 Calculus of kidney (principal); I10 Essential (primary) hypertension; Z79.899 Other long term (current) drug therapy; Z88.8 Allergy status to other drugs, medicaments and biological substances
CPT/HCPCS: 99284; 96374; 96375 ×2; 96376; 96361 ×2; 36415; 80053; 82150; 83690; 85025; 81001; 87086; 74018; J2270; J2405; J1885

== ENCOUNTER 2020-01-30 11:59 | Day surgery (SDC) | payer BC ==
[2020-01-30 12:46] VITALS: TEMP 98.2
--- NOTE | 2020-01-30 14:08 | US ---
EXAMINATION TYPE: US FNA thyroid first lesion DATE OF EXAM: 01/30/2020 COMPARISON: NONE HISTORY: Thyroid nodule.Maximal barrier technique was utilized. After informed consent, skin overlyi ng the right thyroid nodule was localized with ultrasound and the overlying skin prepped and draped. Ultrasound was utilized using sterile technique. Lidocaine was used for local anesthesia. Five passe s with a 25-gauge needle were made into the nodule and aspirated specimen was submitted to cytology. Following the procedure hemostasis achieved. No immediate complication. The patient discharged in stable condition. IMPRESSION: STATUS POST ULTRASOUND GUIDED FINE NEEDLE ASPIRATION OF THYROID NODULE, PATHOLOGY IS PEND ING. THIS PROCEDURE WAS PERFORMED BY THE UNDERSIGNED.
[2020-01-30 14:18] VITALS: BP 128/73; PULSE 88; RESP 16
== END 2020-01-30 14:07 | disposition home or self-care (01) ==
LOC: RADPROMAIN 11:59
PROVIDERS: ATTEND Family Medicine
DX: E04.1 Nontoxic single thyroid nodule (principal)
CPT/HCPCS: 10005; 88173; 88305

== ENCOUNTER → 2020-11-20 | Outpatient (CLI) | payer BC ==
--- NOTE | 2020-11-24 10:57 | MM ---
Reason for exam: screening (asymptomatic). Last mammogram was performed 6 years and 3 months ago. History: Retro-pectoral implants in both breasts. Physical Findings: A clinical breast exam by your physician is recommended on an annual basis and results should be correlated with mammographic findings. MG 3D Screen Mammo Imp/Cad Bilateral CC and MLO view(s) were taken. Prior study comparison: August 25, 2014, mammogram. The breast tissue is heterogeneously dense. This may lower the sensitivity of mammography. Retropectoral silicone implant. Lateral left CC asymmetric density in unchanged. Medial right CC asymmetric density appears new. ASSESSMENT: Incomplete: need additional imaging evaluation, BI-RAD 0 RECOMMENDATION: Special view mammogram of the right breast. (3D) If lesion persists on supplemental views, image directed ultrasound is recommended. [facility] will attempt to contact patient to return for supplemental views and ultrasound if indicated.
== END | disposition home or self-care (01) ==
LOC: RADMAMWWP 14:55
PROVIDERS: ATTEND Family Medicine
DX: Z12.31 Encounter for screening mammogram for malignant neoplasm of breast (principal)
CPT/HCPCS: 77063; 77067

== ENCOUNTER → 2020-12-01 | Outpatient (CLI) | payer BC ==
--- NOTE | 2020-12-01 13:45 | MM ---
Reason for exam: additional evaluation requested from abnormal screening. Last mammogram was performed less than 1 month ago. History: Retro-pectoral implants in both breasts. Physical Findings: Nurse did not find any significant physical abnormalities on exam. MG 3D Work Up W/Cad W/Imp RT CC with magnification and LM view(s) were taken of the right breast. Prior study comparison: November 20, 2020, bilateral MG 3d screen mammo imp/cad. August 25, 2014, mammogram. The breast tissue is heterogeneously dense. This may lower the sensitivity of mammography. Displaced views of the breast. Palpable marker laterally. Medial asymmetric density may partially disperse on the tight spot CC view. These results were verbally communicated with the patient and result sheet given to the patient on 12/01/20. ASSESSMENT: Incomplete: need additional imaging evaluation, BI-RAD 0 RECOMMENDATION: Ultrasound of the right breast.
--- NOTE | 2020-12-01 13:49 | USB ---
Reason for exam: additional evaluation requested from abnormal screening. History: Retro-pectoral implants in both breasts. US Breast Workup Limited RT Right limited breast ultrasound including focal area of concern, retroareolar and axilla demonstrates a 0.5 x 0.5 x 0.4cm oval possible small cyst cluster at 12 o'clock, a 0.7 x 0.5 x 0.3cm oval possible small cyst cluster at 12 o'clock, a 0.3 x 0.4 x 0.2cm oval suspected cyst cluster at 1 o'clock, a 0.3 x 0.3 x 0.2cm oval, lobular, hyperechoic lesion at 2 o'clock probable small lipoma, a 0.5 x 0.6 x 0.4cm oval, cystic lesion with some debris at 10 o'clock, benign and a 1.2 x 0.9 x 0.7cm benign lymph node at the axilla. No abnormality at the 9 o'clock patient palpable. Right breast scanned 12-6 o'clock and 9-10 o'clock. These results were verbally communicated with the patient and result sheet given to the patient on 12/01/20. ASSESSMENT: Probably benign, BI-RAD 3 RECOMMENDATION: Follow-up diagnostic mammogram of the right breast in 6 months. Manage on a clinical basis with regard to any suspicious palpable area.
== END | disposition home or self-care (01) ==
LOC: RADMAMWWP 10:23
PROVIDERS: ATTEND Family Medicine
DX: R92.8 Other abnormal and inconclusive findings on diagnostic imaging of breast (principal)
CPT/HCPCS: 77061; 77065

== ENCOUNTER → 2022-02-09 | Outpatient (CLI) | payer BC ==
--- NOTE | 2022-02-16 08:40 | MM ---
Reason for Exam: Additional evaluation requested from prior study. Last mammogram was performed 1 year(s) and 2 month(s) ago. Patient History: Menarche at age 9. First Full-Term at age 23. Bilateral Implants. Risk Values: Rosangela 5 year model risk: 1.1%. NCI Lifetime model risk: 11.1%. Prior Study Comparison: 11/20/2020 Bilateral Screening Mammogram, [facility]. 12/01/2020 Right Diagnostic Mammogram, [facility]. 12/01/2020 Right Diagnostic Ultrasound, [facility]. Tissue Density: There are scattered fibroglandular densities. Findings: No significant changes when compared with prior studies. Bilateral breast prothesis. Overall Assessment: Benign, BI-RAD 2 Management: Screening Mammogram of both breasts in 1 year. Results were given to the patient verbally at the time of exam. Electronically signed and approved by: Thomas Bailey D.O. Radiologis
== END | disposition home or self-care (01) ==
LOC: RADMAMWWP 13:59
PROVIDERS: ATTEND Family Medicine
DX: R92.8 Other abnormal and inconclusive findings on diagnostic imaging of breast (principal); R92.2 Inconclusive mammogram
CPT/HCPCS: 77062; 77066

== ENCOUNTER → 2022-02-21 | Outpatient (CLI) | payer BC ==
--- NOTE | 2022-02-21 10:26 | US ---
EXAMINATION TYPE: US pelvic complete DATE OF EXAM: 02/21/2022 COMPARISON: CT abdomen and pelvis June 26, 2014. Transvaginal pelvic ultrasound same date. CLINICAL HISTORY: N92.1 EXCESS AND FREQUENT MENSTRUATION. Frequent menstruation. . . TECHNIQUE: . Transabdominal sonographic images of the pelvis were acquired Date of LMP: 02/09/22 EXAM MEASUREMENTS: Uterus: 9.3 x 7.2 x 4.9 cm Endometrial Stripe: 1.0 cm Right Ovary: 2.8 x 2.0 x 1.7 cm Left Ovary: 3.3 x 2.7 x 2.3 cm 1. Uterus: Anteverted Multiple fibroids seen. Largest is in fundus measuring 2.5 x 1.5 x 1.5 cm 2. Endometrium: wnl 3. Right Ovary: wnl 4. Left Ovary: Cystic area measuring 1.2 x 1.2 x 1.2, likely a dominant follicle. 5. Bilateral Adnexa: wnl 6. Posterior cul-de-sac: wnl Heterogeneous prominent anteverted uterus with endometrial stripe measuring 10 mm within normal limit s for secretory phase of menstrual cycle. There are poorly defined heterogeneous myometrial masses or small fibroids. No free fluid. Both ovaries identified. Left ovary has incidental 1.2 cm prominent follicle or simple small ovarian cyst. No adnexal masses. IMPRESSION: Prominent bulky uterus, suspected small scattered fibroids. They can be better evaluated and characterized with pelvic MRI if desired.
== END | disposition home or self-care (01) ==
LOC: RADUSWWP 09:23
PROVIDERS: ATTEND Family Medicine
DX: N92.1 Excessive and frequent menstruation with irregular cycle (principal)
CPT/HCPCS: 76856

== ENCOUNTER 2022-03-15 08:32 | Day surgery (SDC) | payer BC ==
[2022-03-10 15:45] VITALS: BMI 22.4
[~2022-03-15 08:32] MED LIST: LACTATED RINGERS 1,000 ML IV SCH; LIDOCAINE 1% (10MG/ML) FOR IV START INTRADERMA PRN
[2022-03-15 09:29] VITALS: TEMP 97.8
[2022-03-15] MEDS ORDERED: LACTATED RINGERS 1,000 ML IV ONE (09:29)
[2022-03-15] MEDS ORDERED: PROPOFOL 10 MG/ML 20 ML VIAL IV ONE (09:57)
--- NOTE | 2022-03-15 10:34 | P.PCN ---
Date of Procedure: 03/15/22 Procedure(s) Performed: BRIEF HISTORY: Patient is a 46-year-old pleasant white female scheduled for an elective colonoscopy as a part of screening for colon cancer. PROCEDURE PERFORMED: Colonoscopy. PREOPERATIVE DIAGNOSIS: Screening for colon cancer. IV sedation per Anesthesia. PROCEDURE: After informed consent was obtained, the patient, was brought into the endoscopy unit. IV sedation was administered by Anesthesia under continuous monitoring. Digital rectal examination was normal. Initially the Olympus CF-160 flexible video colonoscope was then inserted in the rectum, gradually advanced into the cecum without any difficulty. Careful examination was performed as the scope was gradually being withdrawn. Ileocecal valve and the appendiceal orifice were visualized and appeared normal. Prep was excellent. Mucosa of the cecum, ascending colon, transverse colon, descending colon, sigmoid colon, and rectum appeared normal. Retroflexion was performed in the rectum and no lesions were seen. The patient tolerated the procedure well. IMPRESSION: Normal-appearing colon from rectum to cecumwith no evidence of colorectal neoplasia . RECOMMENDATIONS: Findings of this examination were discussed with the patient as well as her family. She was advised to have a repeat screening colonoscopy in 10 years..
[2022-03-15 10:44] VITALS: BP 136/87; PULSE 74; RESP 16
== END 2022-03-15 11:25 | disposition home or self-care (01) ==
LOC: ORWHC2ENDO 08:32
PROVIDERS: ATTEND Internal Medicine Gastroenterology
DX: Z12.11 Encounter for screening for malignant neoplasm of colon (principal); I10 Essential (primary) hypertension; Z88.8 Allergy status to other drugs, medicaments and biological substances; Z79.899 Other long term (current) drug therapy; Z82.49 Family history of ischemic heart disease and other diseases of the circulatory system; Z83.79 Family history of other diseases of the digestive system; Z80.0 Family history of malignant neoplasm of digestive organs
CPT/HCPCS: 81025; 45378; J2704

== ENCOUNTER → 2023-07-05 | Outpatient (CLI) | payer BC ==
--- NOTE | 2023-07-07 08:54 | MM ---
Reason for Exam: Screening (asymptomatic). Last mammogram was performed 1 year(s) and 5 month(s) ago. Patient History: Menarche at age 9. First Full-Term at age 23. Bilateral Implants. Last menstrual period: 06/21/2023 Risk Values: Rosangela 5 year model risk: 1.1%. NCI Lifetime model risk: 11.0%. Prior Study Comparison: 11/20/2020 Bilateral Screening Mammogram, [facility]. 12/01/2020 Right Diagnostic Mammogram, [facility]. 02/09/2022 Bilateral MG 3D diag mammo imp w/cad BRI, [facility]. Tissue Density: The breast tissue is heterogeneously dense. This may lower the sensitivity of mammography. Findings: Analyzed By CAD. There is no suspicious group of microcalcifications or new suspicious mass in either breast. Bilateral implants are in place. Overall Assessment: Benign, BI-RAD 2 Management: Screening Mammogram of both breasts in 1 year. . Patient should continue monthly self-breast exams. A clinical breast exam by your physician is recommended on an annual basis. This exam should not preclude additional follow-up of suspicious palpable abnormalities. Note on Rosangela scores and lifetime risk: 1. A Rosangela score greater than 3% is considered moderate risk. If this is the case, consider specialist referral to assess eligibility for a risk reducing agent. 2. If overall lifetime risk for the development of breast cancer is 20% or higher, the patient may qualify for future screening with alternating mammogram and breast MRI. Electronically signed and approved by: Sea Gore M.D. Radiologis
== END | disposition home or self-care (01) ==
LOC: RADMAMWWP 14:44
PROVIDERS: ATTEND Family Medicine
DX: Z12.31 Encounter for screening mammogram for malignant neoplasm of breast (principal); Z98.82 Breast implant status
CPT/HCPCS: 77063; 77067

== ENCOUNTER → 2024-11-07 | Outpatient (CLI) | payer OTHER ==
--- NOTE | 2024-11-07 09:56 | XR ---
EXAMINATION TYPE: XR KUB DATE OF EXAM: 11/07/2024 9:52 AM CLINICAL INDICATION: Female, 49 years old with history of R109,N200 ABD PAIN,STONE KIDNEY, pain TECHNIQUE: 1 view of the abdomen. COMPARISON: Abdominal x-ray November 23, 2019. FINDINGS: Gas is seen in nondistended stomach. Scattered gas is seen in non-distended small bowel loo ps. Gas and fecal material is seen in non-distended colon. There is no hepatomegaly or abnormal calci fication appreciated. A few tiny bilateral pelvic phleboliths are seen. The lung bases are not includ ed. The osseous structures are intact. IMPRESSION: Overall nonobstructive bowel gas pattern. [facility], , 11/07/2024 9:54 AM
== END | disposition home or self-care (01) ==
LOC: RADXRYALE 09:33
PROVIDERS: ATTEND Physician Assistant Medical
DX: N20.0 Calculus of kidney (principal)
CPT/HCPCS: 74018

== ENCOUNTER → 2024-11-28 | Outpatient (CLI) | payer MEDICARE, OTHER ==
--- NOTE | 2024-11-28 11:35 | CT ---
EXAMINATION TYPE: CT urogram wo/w con CT DLP: 1498.3 mGycm, Automated exposure control for dose reduction was used. DATE OF EXAM: 11/28/2024 10:14 AM COMPARISON: KUB radiograph 11/07/2024, CTA thoracoabdominal pelvis aorta 10/17/2019, pelvic ultrasound CLINICAL INDICATION:Female, 49 years old with history of R31.0 gross hematuria; PHH, Gross hematuria TECHNIQUE: Urogram of the abdomen and pelvis was performed before and after the administration of 100 cc of IV c ontrast Isovue 300 contrast. Delayed imaging was performed. Coronal and sagittal reformats were perfo rmed. One or more CT dose reduction strategies were utilized during this examination. 2D and 3D recon structions are performed to assist visualization of the urinary tract on a separate workstation. FINDINGS: GENITOURINARY: RIGHT KIDNEY AND URETER: Nonobstructive superior pole right renal upper pole 3 mm calculus. No hydron ephrosis or hydroureter. No renal mass or other lesions. No urothelial lesions: no filling defect, di lation, stricture or wall thickening. LEFT KIDNEY AND URETER: No calculi. No hydronephrosis or hydroureter. No renal mass or other lesions. Duplex left kidney with the 2 ureters appearing to possibly merge at the ureterovesical junction. No urothelial lesions: no filling defect, dilation, stricture or wall thickening. URINARY BLADDER: Moderately well distended. Normal, no calculi, mass or other lesions. REPRODUCTIVE: Bulky appearance to the anteverted uterus. ABDOMEN LIVER: Right hepatic lobe 1.1 cm cyst. Additional peripheral right hepatic lobe subcentimeter hypoden se focus which is too small to accurately characterize but likely represents a cyst. GALLBLADDER AND BILE DUCTS: Unremarkable PANCREAS: Unremarkable. SPLEEN: Unremarkable. ADRENAL GLANDS: Unremarkable. STOMACH AND BOWEL: Unremarkable. The appendix is within normal limits. No evidence of bowel obstructi on. PERITONEUM: No evidence of pneumoperitoneum, free fluid, or adenopathy. VASCULATURE: No aortic aneurysm. Few pelvic phleboliths. MUSCULOSKELETAL: No acute osseous abnormalities. SOFT TISSUE/ABDOMINAL WALL: Small fat filled umbilical hernia. LOWER CHEST: Partial visualization of bilateral breast prosthesis with the right breast demonstrating probable intracapsular rupture. The visualized lung bases are clear. IMPRESSION: 1. No evidence of renal/urothelial neoplasm. 2. Nonobstructive 3 mm right renal calculus. 3. Duplex left kidney. [facility], , 11/28/2024 11:33 AM
== END | disposition home or self-care (01) ==
LOC: RADCTMAIN 08:06
PROVIDERS: ATTEND Urology
DX: N20.0 Calculus of kidney (principal); Q63.0 Accessory kidney; R31.0 Gross hematuria
CPT/HCPCS: 74178; 74400; Q9967